=== PATIENT | female | born 1975 | race Caucasian/White ===

== ENCOUNTER 2021-10-28 12:11 | Inpatient (IN) | payer OTHER ==
[~2021-10-28] VITALS: Ht 152.4 cm; Wt 65.8 kg
[~2021-10-28 12:11] MED LIST: CLINDAMYCIN HC300 MG PO
[2021-10-28 14:03] LABS: HEMOGLOBIN 8.9 gm/dl (12.3-15.3); RED BLOOD COUNT 2.96 M/UL (4.00-5.10); WHITE BLOOD COUNT 11.9 K/UL (4.5-11.0)
[2021-10-28 14:27] LABS: BUN/CREATININE RATIO 20 (0-10)
[2021-10-28] MEDS ORDERED: ELIQUIS5 MG PO (18:20)
[2021-10-28] MEDS ORDERED: LISINOPRIL5 MG PO (18:21)
[2021-10-28] MEDS ORDERED: ROBAXIN 750 MG750 MG PO (18:22)
[2021-10-29 04:26] LABS: HEMOGLOBIN 8.2 gm/dl (12.3-15.3); RED BLOOD COUNT 2.72 M/UL (4.00-5.10)
[2021-10-29 04:29] LABS: WHITE BLOOD COUNT 7.5 K/UL (4.5-11.0)
[2021-10-29 05:38] LABS: BUN/CREATININE RATIO 23 (0-10)
[2021-10-30 07:45] LABS: HEMOGLOBIN 8.8 gm/dl (12.3-15.3); RED BLOOD COUNT 2.97 M/UL (4.00-5.10); WHITE BLOOD COUNT 7.5 K/UL (4.5-11.0)
[2021-10-30 08:13] LABS: BUN/CREATININE RATIO 13 (0-10)
[2021-11-01 15:32] LABS: HEMOGLOBIN 10.1 gm/dl (12.3-15.3); WHITE BLOOD COUNT 9.1 K/UL (4.5-11.0)
[2021-11-01 15:33] LABS: RED BLOOD COUNT 3.37 M/UL (4.00-5.10)
[2021-11-01 15:56] LABS: BUN/CREATININE RATIO 16 (0-10)
[2021-11-03 07:28] LABS: HEMOGLOBIN 9.2 gm/dl (12.3-15.3); RED BLOOD COUNT 3.15 M/UL (4.00-5.10)
[2021-11-03 07:43] LABS: WHITE BLOOD COUNT 6.6 K/UL (4.5-11.0)
[2021-11-03 09:40] LABS: BUN/CREATININE RATIO 19 (0-10)
[2021-11-03] MEDS ORDERED: ENOXAPARIN80 MG/0.8 SC (13:13)
[2021-11-03] MEDS ORDERED: CEFADROXIL500 MG PO (13:13)
[2021-11-03] MEDS ORDERED: DIFLUCAN150 MG PO (13:13)
[2021-11-03] MEDS ORDERED: METRONIDAZOLE500 MG PO (13:13)
[2021-11-03] MEDS ORDERED: TRAMADOL HCL50 MG PO (13:13)
== END 2021-11-03 15:54 | disposition home or self-care (01) | DRG 299 ==
LOC: ER1 12:11 → MED SURG 4 10-30 14:10 → CDU 11-01 09:42 → ER1 11-01 09:42 → CDU 11-01 10:45 → MED SURG 4 11-01 11:04 → ER1 11-02 16:54 → MED SURG 4 11-02 16:54 → ER1 11-02 17:30 → MED SURG 4 11-02 17:30
PROVIDERS: Emergency Medicine; Internal Medicine; Internal Medicine Infectious Disease; ADMIT Internal Medicine
DX: I82.C11 Acute embolism and thrombosis of right internal jugular vein (principal); I26.99 Other pulmonary embolism without acute cor pulmonale; K65.1 Peritoneal abscess; B19.10 Unspecified viral hepatitis B without hepatic coma; F43.10 Post-traumatic stress disorder, unspecified; G47.30 Sleep apnea, unspecified; E87.6 Hypokalemia; F17.210 Nicotine dependence, cigarettes, uncomplicated; I10 Essential (primary) hypertension; D75.839 Thrombocytosis, unspecified; D64.9 Anemia, unspecified; Z87.828 Personal history of other (healed) physical injury and trauma; Z90.81 Acquired absence of spleen; Z98.891 History of uterine scar from previous surgery; Z82.3 Family history of stroke; Z82.49 Family history of ischemic heart disease and other diseases of the circulatory system; Z88.0 Allergy status to penicillin; Z79.01 Long term (current) use of anticoagulants; Z79.82 Long term (current) use of aspirin; Z90.710 Acquired absence of both cervix and uterus
CPT/HCPCS: 36415; 70450; 70496; 70498; 80053; 82550; 82553; 83036; 83605; 83735; 83880; 84484; 85025; 85027; 85610; 85730; 86140; 87040; 93005; 93971; 96365; 96372; 96375; 96376; 99285; J1650; J2185; J2270; J2405; J7040; Q9967; U0002

== ENCOUNTER 2021-11-02 16:56 | Inpatient (IN) | payer OTHER ==
[~2021-11-02 16:56] MED LIST changes: +ELIQUIS5 MG PO; +LISINOPRIL5 MG PO; +ROBAXIN 750 MG750 MG PO
[2021-11-03] MEDS ORDERED: TRAMADOL HCL50 MG PO (13:13)
[2021-11-03] MEDS ORDERED: DIFLUCAN150 MG PO (13:13)
[2021-11-03] MEDS ORDERED: ENOXAPARIN80 MG/0.8 SC (13:13)
[2021-11-03] MEDS ORDERED: CEFADROXIL500 MG PO (13:13)
[2021-11-03] MEDS ORDERED: METRONIDAZOLE500 MG PO (13:13)
== END 2021-11-03 15:54 | disposition home or self-care (01) | DRG 299 ==
LOC: MED SURG 4 16:56
PROVIDERS: ADMIT Internal Medicine
DX: I82.C11 Acute embolism and thrombosis of right internal jugular vein (principal); I26.99 Other pulmonary embolism without acute cor pulmonale; K65.1 Peritoneal abscess; B19.10 Unspecified viral hepatitis B without hepatic coma; F43.10 Post-traumatic stress disorder, unspecified; G47.30 Sleep apnea, unspecified; E87.6 Hypokalemia; F17.210 Nicotine dependence, cigarettes, uncomplicated; I10 Essential (primary) hypertension; D75.839 Thrombocytosis, unspecified; D64.9 Anemia, unspecified; Z87.828 Personal history of other (healed) physical injury and trauma; Z90.81 Acquired absence of spleen; Z98.891 History of uterine scar from previous surgery; Z82.3 Family history of stroke; Z82.49 Family history of ischemic heart disease and other diseases of the circulatory system; Z88.0 Allergy status to penicillin; Z79.01 Long term (current) use of anticoagulants; Z79.82 Long term (current) use of aspirin; Z90.710 Acquired absence of both cervix and uterus
CPT/HCPCS: 36415; 70450; 70496; 70498; 80053; 82550; 82553; 83036; 83605; 83735; 83880; 84484; 85025; 85027; 85610; 85730; 86140; 87040; 93005; 93971; 96365; 96372; 96375; 96376; 99285; J1650; J2185; J2270; J2405; J7040; Q9967; U0002